=== PATIENT | female | born 1955 | race Caucasian/White ===

== ENCOUNTER → 2016-12-10 07:14 | Outpatient (CLI) | payer OTHER ==
[2014-06-01 12:19] VITALS: BMI 29.1
--- NOTE | ~2016-12-10 | EMG ---
PATIENT:LEOBARDO BAIRD DATE OF SERVICE: 12/10/16 MEDICAL RECORD: [id number] DATE OF : 59 LOCATION: [facility] ADMISSION DATE: REFERRING PHYSICIAN: СЕРГЕЙ DUVALL MD INTERPRETING PHYSICIAN: STEPAN GAN MD DATE OF SERVICE: 12/10/2016 Electromyographic Report REFFERED BY: Dr. Duvall as an outpatient. ELECTROMYOGRAPHIC DATA: Electromyographic examination is limited to both upper extremities. In the right upper extremity, right median motor stimulation elicits a compound motor action potential with a distal latency of 2.9 milliseconds, peak amplitude of 7 millivolts, and calculated conduction velocity of 57 meters per second. Right ulnar motor stimulation elicits a compound motor action potential with a distal latency of 2.5 milliseconds, peak amplitude of 8 millivolts, and calculated conduction velocity of 64 meters per second. Right ulnar motor stimulation across the elbow fails to elicit evidence of conduction block at this level. Antidromic right median sensory stimulation elicits a response with a distal latency of 3.2 milliseconds, amplitude of 15 microvolts and calculated conduction velocity of 56 meters per second. Antidromic right ulnar sensory stimulation elicits a response with a distal latency of 3.1 milliseconds, amplitude of 10 microvolts and calculated conduction velocity of 60 meters per second. The right median F wave has a latency of 26 milliseconds. In the left upper extremity, left median motor stimulation elicits a compound motor action potential with a distal latency of 3.6 milliseconds, peak amplitude of 4 millivolts, and calculated conduction velocity of 57 meters per second. Left ulnar motor stimulation elicits a compound motor action potential with a distal latency of 2.5 milliseconds, peak amplitude of 8 millivolts, and calculated conduction velocity of 67 meters per second. Left ulnar motor stimulation across the elbow fails to elicit evidence of conduction block at this level. Antidromic left median sensory stimulation elicits a response with a distal latency of 3.8 milliseconds, amplitude of 12 microvolts and calculated conduction velocity of 58 meters per second. Antidromic left ulnar sensory stimulation elicits a compound motor action potential with a distal latency of 3.0 milliseconds, amplitude of 13 microvolts and calculated conduction velocity of 49 meters per second. The left median F wave has a latency of 27 milliseconds. Needle electrode examination is limited to both upper extremities as well. Muscles interrogated include the abductor pollicis brevis, first dorsal interosseous, abductor digiti minimi, pronator teres, biceps brachii, triceps and deltoid. There is no abnormality of insertional activity and no abnormal spontaneous activity is seen in all muscles interrogated. Motor unit potential morphology and the pattern of motor unit potential firing and recruitment is normal in all muscles sampled. INTERPRETATION: Electromyographic examination of both upper extremities is normal with the exception of minimal prolongation of the left median sensory distal latency as compared to the contralateral median sensory distal latency ELECTROMYGRAM/NERVE CONDUCTION [id number] LEOBARDO BAIRD and the ulnar sensory distal latencies. This is indicative of median neuropathy, at or distal to the wrist on the left, minimal in degree electrically, consistent with the diagnosis of left carpal tunnel syndrome. There is no electrical evidence of a superimposed cervical radiculopathy or other lesion of the lower motor neuron in the upper extremities at this time. There is no evidence of active denervation. TRANSINT:[id number] Voice Confirmation ID: [id number] DOCUMENT ID: [id number] STEPAN GAN MD CC: [id number] DICTATION DATE: 12/10/16842 PSYCHIATRIC REGISTERED NURSE: 12/11/16 0223 DEP CLI 12/10/16 [facility] [address] [place] [address]
[~2016-12-10 07:14] MED LIST: ADIPEX-P37.5 MG PO; FLEXERIL10 MG PO; LEXAPRO10 MG PO; NEXIUM40 MG PO; NORCO 10/325 TA1 TA1 PO; PERCOCET 10/3251 TA1 PO; PHENERGAN25 M1 PO; PRAVACHOL10 MG PO; PRAVACHOL20 MG PO; ROBAXIN500 MG PO; TOPAMAX50 MG PO; WELLBUTRIN SR150 MG PO; XANAX0.5 MG PO
== END | disposition home or self-care (01) ==
LOC: D.CN 09-01 09:00
DX: R20.0 Anesthesia of skin (principal); R20.2 Paresthesia of skin

== ENCOUNTER 2017-10-26 08:00 | Outpatient (CLI) | payer OTHER ==
[2014-06-01 12:19] VITALS: BMI 29.1
== END 2017-10-26 12:15 | disposition home or self-care (01) ==
LOC: D.MAMMO 08:00
DX: Z12.31 Encounter for screening mammogram for malignant neoplasm of breast (principal)

== ENCOUNTER 2018-11-03 09:35 | Day surgery (SDC) | payer OTHER ==
[2018-11-02 09:31] LABS: BASOPHILS 0.2 % (0-2); EOSINOPHILS 1.3 % (0-7); HEMATOCRIT 44.7 % (36.0-48.0); HEMOGLOBIN 15.6 g/dL (12-16); IMMATURE GRANULOCYTES 0.2 % (0-5); LYMPHOCYTES 29.3 % (15-50); MCHC 34.9 g/dL (31.0-37.0); MCV 88.7 fL (80.0-100.0); PLATELET COUNT 203 10x3/uL (130-400); RBC 5.04 10x6/uL (4.00-5.40); RDW 12.8 % (11.5-14.5); WBC 4.7 10x3/uL (4.8-10.8)
[2018-11-02 09:42] LABS: APTT 26.6 SECONDS (22.8-39.4); INR 1.09 (0.85-1.17); PROTIME 13.6 SECONDS (11.6-15.0)
[~2018-11-03 09:35] MED LIST changes: +ARMOUR THYROID30 MG PO; +LUNESTA1 MG PO; +ZOFRAN4 MG PO
[2018-11-03 09:47] VITALS: BP 139/87; BMI 34.6
--- NOTE | 2018-11-03 13:10 | OP ---
PATIENT NAME: LEOBARDO BAIRD MEDICAL RECORD: [id number] :59 LOCATION:D[facility] ADMISSION DATE: SURGEON: GERMAIN INGRAM MD DATE OF OPERATION: 11/03/2018 SURGEON: Germain Ingram MD ANESTHESIA: General anesthesia by Rey Reaves CRNA. DIAGNOSES: Urge urinary incontinence, exhausted pacemaker battery, nonfunctional pacemaker lead. PROCEDURE: Explantation of InterStim pacemaker and lead (old). New InterStim pacemaker and lead insertion into the right S3 nerve root. FINDINGS: Previous electrode was probably in the right S4 nerve root. Bilateral S3 nerve roots were tested and the right side was more sensitive. SPECIMENS: InterStim pacemaker and lead. BLOOD LOSS: None. CLINICAL HISTORY: This is a 63-year-old female, who had an InterStim device placed for urge urinary incontinence by Dr. Crump of [facility] in the early 1999s. The battery was changed in 2013. The lead had problems as only 3 of the 4 channels were working at the time of the battery change. Now, the battery is and the lead is probably nonfunctional also. We will be removing all of the old hardware and putting in brand new hardware. SHE IS ALLERGIC TO CODEINE. She was given Ancef application support analyst to the OR. DESCRIPTION OF PROCEDURE: The patient was given induction of general anesthesia and placed in prone position. She was then prepped and draped. I infiltrated 0.25% Marcaine with epinephrine around the site of the old pacemaker pocket. The pacemaker is rather superficial under the skin and I can feel the corners of the pacemaker through the skin. The pacemaker pocket was reopened using #15 blade and then using cautery. The pacemaker itself was removed. By tugging on the attached lead, I could see where it inserted into the sacral nerve root. A small incision was made here and the rest of the electrode was removed using a hemostat. The tip of the electrode has tines on it, which would prevent retraction through the subcutaneous skin. We therefore cut the pacemaker electrode just proximal to the tines and then removed the 2 segments of the electrode and thus old unit was entirely removed. Using the Bovie, I cut through the deeper portion of the pacemaker pocket capsule and with blunt dissections, I made a new pocket right at the gluteal fascial level. We then brought in our C-arm. Under fluoroscopy, identified the S3 foramen and the role of sacral foramina. These were marked out using a marking pen. The skin overlying the S2 foramen was then infiltrated with 0.25% Marcaine with epinephrine. Spinal needles were then placed into the S3 foramen on both sides. We electrically tested the S3 foramen on both sides. Both of them gave excellent omari and toe flexion responses at 2 volts. We progressively lowered the voltage by half every time. At 0.25 volts, there was no further response from the left S3 nerve root, but there was still a good response from the right S3 nerve root. The right side being much more sensitive, we decided to proceed with the right side. It should be noted by judging the position of her previous electrode entry that the previous electrode that she had originally OPERATIVE REPORT [id number] LEOBARDO BAIRD was most likely in the S4 nerve root and that may explain some of the lack of efficacy of that electrode. A small incision was made on either side of the spinal needle. The stylet was removed from the spinal needle. An extra-long stylet was placed to hold down the path into the sacral nerve root. The spinal needle was then removed. Over the extra-long stylet, we inserted the trocar dilator. Once the trocar depth was at three-quarters way through the sacral bone, the dilator was removed as well as the extra-long stylet. Through the lumen of the sheath, we inserted the 4-channel electrode. The sheath was then withdrawn to allow all 4 channels to be exposed. We tested each of the 4 channels in turn. Channel 0 did not show any response. However, channels 1 through 3 all showed excellent responses at very low voltages. The sheath was removed as well as the stylet of the electrode. A tunneling device was used to bring the electrode over to the pacemaker pocket. Here, the electrode was attached to the pacemaker using a torque-limiting screwdriver. The pacemaker was then placed into its pocket. We irrigated out the wound with normal saline. Telemetry was performed and we found that all the pacemaker function as well as the lead functions working correctly. There are no open circuits or short circuits in the lead. The wounds were closed with becky. I did use some simple interrupted 4-0 Vicryl to close the posterior wall of the capsule over the pacemaker. Dressings were then applied, and the patient was awakened and brought to the recovery room. I will see her next week to remove the becky and to check on her function. TRANSINT:[id number] Voice Confirmation ID: [id number] DOCUMENT ID: [id number] GERMAIN INGRAM MD at 1310 CC: [id number] DICTATION DATE: 11/03/18 1223 POULTRYMAN: 11/03/18 1254 [id number] [place] [address]
== END 2018-11-03 13:40 | disposition home or self-care (01) ==
LOC: D.OPS 09:35
PROVIDERS: Anesthesiology; ATTEND Urology
DX: N39.41 Urge incontinence (principal); T83.89XA Other specified complication of genitourinary prosthetic devices, implants and grafts, initial encounter; Z01.812 Encounter for preprocedural laboratory examination

== ENCOUNTER → 2018-11-25 08:26 | Outpatient (CLI) | payer OTHER ==
[2018-11-03 09:47] VITALS: BMI 34.6
== END | disposition home or self-care (01) ==
LOC: D.MAMMO 08:00
PROVIDERS: ATTEND Clinical Nurse Specialist Family Health
DX: N63.31 Unspecified lump in axillary tail of the right breast (principal); R59.0 Localized enlarged lymph nodes

== ENCOUNTER → 2018-12-16 18:33 | Outpatient (CLI) | payer OTHER | END | disposition home or self-care (01) | LOC: D.LABREF 18:33 | PROVIDERS: ATTEND Urology | DX: N39.0 Urinary tract infection, site not specified (principal) ==

== ENCOUNTER 2019-02-09 06:20 | Day surgery (SDC) | payer OTHER ==
[2019-02-08 08:29] LABS: HEMATOCRIT 42.8 % (36.0-48.0); HEMOGLOBIN 14.7 g/dL (12-16); MCH 30.1 pg (26.0-34.0); MCHC 34.3 g/dL (31.0-37.0); MCV 87.7 fL (80.0-100.0); MEAN PLATELET VOLUME 9.8 fL (7.4-10.4); RBC 4.88 10x6/uL (4.00-5.40); RDW 13.3 % (11.5-14.5); WBC 7.5 10x3/uL (4.8-10.8)
[~2019-02-09] VITALS: Ht 167.6 cm; Wt 90.7 kg
[2019-02-09] MEDS ORDERED: [UNRECOGNIZED DRUG - OTHER] PO (07:09)
[2019-02-09] MEDS ORDERED: MYRBETRIQ50 MG PO (07:10)
[2019-02-09] MEDS ORDERED: PERCOCET 10-321 EAC1 PO (07:12)
[2019-02-09 07:16] VITALS: BP 151/83; Ht 167.6 cm; Wt 90.7 kg
--- NOTE | 2019-02-09 11:10 | NUR ---
1037-REC'D FROM RR. AWAKE AND ALERT. VSS. DENIES PAIN, NO DISTRESS. ASSISTED UP TO RESTROOM. UNABLE TO URINATE AT THIS TIME. IV PATENT AT KVO.
--- NOTE | 2019-02-09 11:11 | NUR ---
1110-FULL LIQUID TRAY TO ROOM. DENIES COMPLAINTS. NO DISTRESS.
--- NOTE | 2019-02-09 11:41 | NUR ---
1115-ATTEMPTED TO URINATE FOR 2ND TIME WITHOUT SUCCESS. ABD SOFT,NON DISTENDED.VSS. DENIES PAIN.TOLERATED FULL LIQUID TRAY. DAUGHTER AT BEDSIDE,CL IN EASY REACH.
--- NOTE | 2019-02-09 11:58 | OP ---
PATIENT NAME: LEOBARDO BAIRD MEDICAL RECORD: [id number] :59 LOCATION:[facility] ADMISSION DATE: SURGEON: GERMAIN INGRAM MD DATE OF OPERATION: 02/09/2019 SURGEON: Germain Ingram MD ANESTHESIA: General anesthesia by Rey Reaves CRNA. DIAGNOSIS: Female stress urinary incontinence. PROCEDURES: Cystoscopy, pubovaginal sling with [employer] Obtryx mesh graft. FINDINGS: On cystoscopy, cystitis cystica with no bladder tumors. No bladder injury. BLOOD LOSS: Minimal. CLINICAL HISTORY: This is a 63-year-old female, A0, who had a hysterectomy in 1997. Starting from 1998, she has urinary incontinence with activity. Coughing, straining, lifting, laughing, arising from bed will cause her leakage. She recently had the InterStim implant placed for urge urinary incontinence. There is no further urge incontinence, but she still had stress urinary incontinence. On bimanual examination, she has urethral hypermobility with stress incontinence with coughing. Veto test is positive. There is a very minor degree of a cystocele and there is no enterocele and no rectocele. She comes today for a pubovaginal sling. She was warned of the risks of using vaginal mesh, which include infection, graft erosion, graft extrusion, dyspareunia, vaginal pain. She is agreeable to using the mesh graft for the sling. SHE IS ALLERGIC TO CODEINE, WHICH MAKES HER NAUSEOUS. She was given Ancef guest relations coordinator to the OR. DESCRIPTION OF PROCEDURE: The patient was given induction of general anesthesia in supine position. She was then placed into lithotomy position and prepped and draped. A weighted speculum was placed to hold down the posterior vaginal wall. A Phipps catheter was inserted into the bladder and put to bag drainage. A #2 nylon stay sutures were used to hold the labia majora laterally. They were placed through the labia majora and anchored to the medial thighs. The anterior vaginal wall was then infiltrated with Pitressin solution. Twenty units of vasopressin was dissolved in 100 mL of injectable normal saline. This was injected into the periurethral area for hydrodissection. A 1 cm vertical midline incision was then made over the urethra. This was in the anterior vaginal wall. Dissection was then performed using Metzenbaum scissors to dissect the plane between the urethra and the vaginal wall. We extended laterally to the obturator membrane and penetrated the pubocervical ligaments there on either side. The insertion points for the helical trocars of the transobturator graft were then marked out with a marking pen on the groin. This is inferior to the insertion of the adductor longus muscle on to the descending pubic ramus. A stab incision was made here on either side with a #15 blade. The helical trocars were then inserted through the stab sites. They went deep to the descending pubic ramus and came out through the anterior apex of the obturator membrane. Here the needle tip went through the vaginal dissection space and out through the vaginal incision. The tips of the Obtryx II graft were then attached to the needle tips of the trocars and the trocars were OPERATIVE REPORT [id number] LEOBARDO BAIRD withdrawn, resulting in transobturator passage of the graft. The tab on the midpoint of the graft was placed under the mid urethra. At this point, the tab was then removed by cutting the stitch. The Phipps catheter was removed and we performed cystoscopy using a 17-Vincentian cystoscope. She has cystitis cystica, which may indicate recent urinary tract infection. No bladder injury was seen. No urethral injury was seen. The bladder was filled to capacity using the cystoscope. Thereafter, we could apply manual pressure suprapubically and elicit leakage of urine per the urethra. The graft tension was gradually increased until suprapubic pressure, no longer caused any leakage. We did put the legs into the low lithotomy position for this to prevent over tightening of the sling. At this point, the clear plastic sheath material on either side of the graft was removed by cutting the stitch holding it in place. The sheath material on each side was removed entirely. The graft was then cut at the skin level. The groin incisions were closed using simple interrupted 4-0 Vicryl sutures. The vaginal incision was closed using a running 4-0 Monocryl. The bladder was emptied using a Phipps catheter. The Phipps catheter was then removed at the end of the case. The stay sutures were removed by cutting them. Vaginal packing consisting of Kerlix infiltrated with estrogen cream was placed into the vagina. This will be removed prior to the patient going home. TRANSINT:[id number] Voice Confirmation ID: [id number] DOCUMENT ID: [id number] GERMAIN INGRAM MD at 1158 CC: [id number] DICTATION DATE: 02/09/19 1018 BUNDLE HELPER: 02/09/19 115[id number] [place] [id number]
--- NOTE | 2019-02-09 14:03 | NUR ---
1245-DISCHARGE CRITERIA MET.ABLE TO URINATE. VSS. REMOVED IV WITH CATH INTACT, DISPOSED INTO SHAPPS,COVERED SITE WITH BANDAID. REVIEWED POST OPERATIVE INSTRUCTIONS WITH PT WITH DAUGHTER AT BEDSIDE.VERBALIZED UNDERSTANDING WITHOUT QUESTIONS OR CONCERNS. ESCORTED OUT VIA W/C WITH DAUGHTER AWAITING TO DRIVE HOME.
== END 2019-02-09 12:45 | disposition home or self-care (01) ==
LOC: D.OPS 06:20
PROVIDERS: Anesthesiology; ATTEND Urology
DX: N39.3 Stress incontinence (female) (male) (principal)

== ENCOUNTER 2019-05-24 18:11 | Inpatient (IN) | payer OTHER ==
[~2019-05-24] VITALS: Ht 167.6 cm; Wt 89.8 kg
[~2019-05-24 18:11] MED LIST changes: +MYRBETRIQ50 MG PO; +PERCOCET 10-321 EAC1 PO; +[UNRECOGNIZED DRUG - OTHER] PO
[2019-05-24] MEDS ORDERED: SYNTHROID50 MCG PO (18:50)
[2019-05-24 19:17] LABS: BASOPHILS 0.1 % (0-2); EOSINOPHILS 0 % (0-7); HEMATOCRIT 43.9 % (36.0-48.0); HEMOGLOBIN 15.1 g/dL (12-16); IMMATURE GRANULOCYTES 0.3 % (0-5); MCH 31.1 pg (26.0-34.0); MCHC 34.4 g/dL (31.0-37.0); MCV 90.3 fL (80.0-100.0); MEAN PLATELET VOLUME 10.1 fL (7.4-10.4); NEUTROPHILS 88.6 % (40-80); PLATELET COUNT 201 10x3/uL (130-400); RBC 4.86 10x6/uL (4.00-5.40); RDW 13.3 % (11.5-14.5); WBC 18.3 10x3/uL (4.8-10.8)
[2019-05-24 19:33] LABS: CALC OSMOLALITY 273 mosm/kg (275-300); CALCIUM 8.8 mg/dL (8.5-10.1); CARBON DIOXIDE 20.4 mmol/L (21.0-32.0); CHLORIDE - SERUM 102 mmol/L (98-107); CREATININE - SERUM 1.6 mg/dL (0.6-1.3); POTASSIUM - SERUM 3.8 mmol/L (3.5-5.1); SODIUM 135 mmol/L (136-145); UREA NITROGEN 21 mg/dL (7-18); eGFR NON AFRICAN AMERICAN 35 mL/min (90-120)
[2019-05-24 19:34] LABS: APTT 25.4 SECONDS (22.8-39.4); GLUCOSE 125 mg/dL (74-106); INR 1.03 (0.85-1.17); PROTIME 13.4 SECONDS (11.6-15.0)
[2019-05-24 19:47] LABS: ALBUMIN 3.6 g/dL (3.4-5.0); ALKALINE PHOSPHATASE 88 U/L (46-116); ALT (SGPT) 27 U/L (10-68); BILIRUBIN - TOTAL 0.52 mg/dL (0.2-1.3); CKMB 0.2 U/L (0.0-3.6); CREATINE KINASE 56 UL (21-215); PROTEIN - SERUM 7.4 g/dL (6.4-8.2)
[2019-05-24 19:52] LABS: TROPONIN-I < 0.017 ng/mL (0.000-0.060)
--- NOTE | 2019-05-24 21:02 | NUR ---
URINE SENT TO LAB
[2019-05-24 21:23] LABS: APPEARANCE CLEAR (CLEAR); BILIRUBIN NEGATIVE (NEGATIVE); COLOR YELLOW (YELLOW); GLUCOSE NEGATIVE (NEGATIVE); KETONE NEGATIVE (NEGATIVE); NITRITE NEGATIVE (NEGATIVE); PROTEIN NEGATIVE (NEGATIVE); UROBILINOGEN NORMAL (NORMAL)
--- NOTE | 2019-05-24 21:36 | NUR ---
PT FAMILY MEMBER REQUESTING TO SPEAK WITH JASON TORRES IN [facility] NOTIFIED. EDP NOTIFIED ALEXANDRA WILKES.
[2019-05-25] VITALS (7 sets, daily range): BP systolic 105–140; BP diastolic 63–77; Ht 167.6 cm; Wt 89.8 kg
--- NOTE | 2019-05-25 00:30 | NUR ---
REC'D PATIENT FROM ER WITH GUEST AT BEDSIDE. BED IN LOWEST POSITION AND CALL LIGHT WITHIN REACH. ADMISSION COMPLETED. PATIENT REQUESTED PAIN MEDS WHEN DUE. PATIENT DENIES OTHER NEEDS AT THIS TIME. BED IN LOWEST POSITION AND CALL LIGHT WITHIN REACH. ENCOURAGED THE PATIENT TO CALL IF SHE HAS NEEDS. WILL CONTINUE TO MONITOR.
[2019-05-25] MEDS ORDERED: MIRAPEX0.75 MG PO (00:41)
[2019-05-25 06:56] LABS: BASOPHILS 0.2 % (0-2); EOSINOPHILS 0 % (0-7); HEMATOCRIT 43.4 % (36.0-48.0); HEMOGLOBIN 14.5 g/dL (12-16); IMMATURE GRANULOCYTES 0.3 % (0-5); LYMPHOCYTES 9.6 % (15-50); MCH 30.7 pg (26.0-34.0); MCHC 33.4 g/dL (31.0-37.0); MCV 91.9 fL (80.0-100.0); MEAN PLATELET VOLUME 10.3 fL (7.4-10.4); MONOCYTES 3.3 % (2-11); NEUTROPHILS 86.6 % (40-80); PLATELET COUNT 178 10x3/uL (130-400); RBC 4.72 10x6/uL (4.00-5.40); RDW 13.7 % (11.5-14.5); WBC 17.1 10x3/uL (4.8-10.8)
[2019-05-25 07:05] LABS: ANION GAP 14.2 mmol/L (8-16); CALCIUM 8.2 mg/dL (8.5-10.1); CARBON DIOXIDE 23.6 mmol/L (21.0-32.0); CREATININE - SERUM 1.5 mg/dL (0.6-1.3); MAGNESIUM - SERUM 1.5 mg/dL (1.8-2.4); PHOSPHOROUS 3.5 mg/dL (2.5-4.9); POTASSIUM - SERUM 3.8 mmol/L (3.5-5.1); THYROID STIMULATING HORMONE 1.7 uIU/mL (0.36-3.74)
--- NOTE | 2019-05-25 07:50 | NUR ---
ASSESSMENT COMPLETE, DAUGHTER @ BS. PT C/O RIGHT SHOULDER PAIN. STATES SHE TAKES OXYCODONE FOR PAIN AT HOME HOWEVER HERE [facility] ORDERED. WILL ADDRESS WITH .
--- NOTE | 2019-05-25 10:30 | NUR ---
SON AT BEDSIDE, DENIES ANY NEEDS AT THIS TIME
--- NOTE | 2019-05-25 12:51 | MORECARE ---
CASE MANAGEMENT DISCHARGE SUMMARY PATIENT: LEOBARDO BAIRD UNIT: [id number] ADM DATE: 05/24/19 AGE: 63 : 59 SEX: F ROOM/BED: D.1203 AUTHOR: AI MÉNDEZ PHYSICIAN: REFERRING PHYSICIAN: JOSEPH SOTOMAYOR MD DATE OF SERVICE: 05/25/19 Discharge Plan Patient Name: LEOBARDO BAIRD Facility: [facility]:[place] : 1955 Planned Disposition: Home Anticipated Discharge Date: 05/29/19 Discharge Date: Expected LOS: 5 Initial Reviewer: [email or web address] Initial Review Date: 05/25/2019 Generated: 05/25/19 1:51 pm DCPIA - Discharge Planning Initial Assessment Updated by [email or web address]: Brianna Sorensen on 05/25/19 12:50 pm * Is the patient Alert and Oriented? Yes * PCP Dr. Duvall * Pharmacy [facility] * Preadmission Environment Home with Family * ADLs Independent * Equipment None * List name and contact numbers for known caregivers / representatives who currently or will assist patient after discharge: Liyah Chiu - [facility] - [phone] * Verbal permission to speak to the caregivers and representatives has been obtained from the patient. Yes * Community resources currently utilized None * Additional services required to return to the preadmission environment? No * Can the patient safely return to the preadmission environment? Yes * Has this patient been hospitalized within the prior 30 days at any hospital? No Patient Name: LEOBARDO BAIRD Page [phone] at 1251 All edits/amendments must be made on the electronic document DICTATION DATE: 05/25/19 1251 HEAD GOLF COACH: GEOVANNA 05/25/19 1251 RPT#: [id number] DC DATE: STATUS: ADM IN [facility] [address] [place] [address] END OF REPORT
--- NOTE | 2019-05-25 12:54 | NUR ---
NOTIFIED RESPIRATORY THERAPIST THAT PT WAS HAVING TROUBLE BREATHING AND NEEDED ASSISTANCE. WAS INSTRUCTED TO ORDER ABG AND CHEST XRAY. ORDER PLACED PER RT REQUEST. WILL CTM.
--- NOTE | 2019-05-25 13:01 | MORECARE ---
CASE MANAGEMENT DISCHARGE SUMMARY PATIENT: LEOBARDO BAIRD UNIT: [id number] ADM DATE: 05/24/19 AGE: 63 : 59 SEX: F ROOM/BED: D.1203 AUTHOR: DEVDOC PHYSICIAN: REFERRING PHYSICIAN: JOSEPH SOTOMAYOR MD DATE OF SERVICE: 05/25/19 Discharge Plan Patient Name: LEOBARDO BAIRD Facility: [facility]:[place] : 1955 Planned Disposition: Home Anticipated Discharge Date: 05/29/19 Discharge Date: Expected LOS: 5 Initial Reviewer: [email or web address] Initial Review Date: 05/25/2019 Generated: 05/25/19 2:00 pm DCP- Discharge Planning Updated by [email or web address]: Brianna Sorensen on 05/25/19 11:[address] DC PLAN:Return home independently. ANTICIPATED DC NEEDS: denied known dc needs at time of assessment. CM met with patient to complete initial dc planning assessment. CM educated patient on the CM role and verbal consent given by patient to complete assessment. CM verified patient's address, phone number, and emergency contact phone numbers. Patient lives at home independently. 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 At discharge patient plans to return home independently and feels this is a safe discharge. CM discussed availability of home health, rehab services, and medical equipment. Patient denied known discharge needs at this time. Transportation provider at discharge will be one of her daughters. CM will continue to follow and will assist as needed with dc plans/needs. Brianna Sorensen RN, [facility] DCPIA - Discharge Planning Initial Assessment Updated by [email or web address]: Brianna Sorensen on 05/25/19 12:50 pm * Is the patient Alert and Oriented? Yes * PCP Dr. Duvall * Pharmacy [facility] * Preadmission Environment Home with Family * ADLs Independent * Equipment None * List name and contact numbers for known caregivers / representatives who currently or will assist patient after discharge: Liyah Chiu - daughter - [phone] * Verbal permission to speak to the caregivers and representatives has been obtained from the patient. Yes * Community resources currently utilized None * Additional services required to return to the preadmission environment? No * Can the patient safely return to the preadmission environment? Yes * Has this patient been hospitalized within the prior 30 days at any hospital? No Last DP export: 05/25/19 11:51 am Patient Name: LEOBARDO BAIRD Page 47875 at 1301 All edits/amendments must be made on the electronic document DICTATION DATE: 05/25/19 1300 INTERNAL MEDICINE SPECIALIST: GEOVANNA 05/25/19 1300 RPT#: [id number] DC DATE: STATUS: ADM IN [facility] [address] [place] [address] END OF REPORT
--- NOTE | 2019-05-25 14:30 | NUR ---
IV RESTARTED X 2 STICKS WITH 22 GAUGE TO L HAND. I/2 NS INFUSING @ 75CC/HR. REHAB STAFF IN ROOM TALKING TO PT ABOUT INPATIENT REHAB.
--- NOTE | 2019-05-25 16:29 | NUR ---
15OO DR. KIM ON FLOOR ROUNDING ON PT. NEW ORDERS RECEIVED. 1545 TEMP 100.1 TYLENOL GIVEN 1615 RETURNED FROM CTA, FAMILY AT BEDSIDE.
--- NOTE | 2019-05-25 16:37 | NUR ---
PT ASSISTED TO RESTROOM.
--- NOTE | 2019-05-26 00:51 | NUR ---
PT LYING IN BED RESTING WITH EYES CLOSED. EASILY AWAKEN WITH VERBAL STIMULI. NO SIGNS OR SYMPTOMS OF DISTRESS NOTED. RESPIRATIONS EVEN AND UNLABORED. 3L NC DAUGHTER IS AT BEDSIDE. PRN PAIN MEDICATION GIVEN FOR 6/10 PAIN LEVEL. DURING REASSESSMENT PAIN LEVEL IS NOW A 0/10. CONTINENT OF BOWELL AND BLADDER. BOWELL SOUND ACTIVE x4. PT STATES THAT LAST BOWELL MOVEMENT WAS 05/24/2019. ABDOMEN IS SOFT TO PALPATION. IV IS IN LEFT AC. UP AD MOMO. PT STATES THAT SHE IS SWEATING. HEAT TURNED OFF AND COVERS PULLED BACK. SHOWERED OFFERED AND PT REFUSED, STATING THAT SHE WILL TAKE A SHOWER IN THE AM. GOWN CHANGED. CALL LIGHT IS WITH IN REACH AND BED IS IN LOWEST POSITION. WILL CONTINUE TO MONITOR
[2019-05-26 01:08] VITALS: BP 96/57
[2019-05-26 06:05] VITALS: BP 111/63
--- NOTE | 2019-05-26 06:44 | NUR ---
PT LYING IN BED WITH EYES CLOSED. NOT EASY AWAKEN TO STIMULATION. PT IS LETHARGIC SKIN IS SWEATY AND FEELS CLAMMY, HANDS ARE SWOLLEN BILATERLLY. PT ALSO PRESENTS WITH A NON PRODUCTIVE WET COUGH. BLOOD SUGAR CHECKED 162. RESPIRATORY NOTIFIED UP DRAFT GIVEN. DAUGHTER IS AT BEDSIDE. DAUGHTER ATEMPTED TO TAKE RING OFF BECAUSE OF PT SWOLLEN HANDS BUT WAS UNSUCCESSFUL. PT READJUSTED AND BED WAS ELEVATED TO 90 DEGREE ANGLE. WILL CONTINUE TO MONITOR.
--- NOTE | 2019-05-26 06:49 | NUR ---
I have reviewed this patient and I concur with the Shift Assessment completed by the Licensed Practical Nurse today this shift.
[2019-05-26 07:13] LABS: HEMATOCRIT 44.3 % (36.0-48.0); HEMOGLOBIN 14.6 g/dL (12-16); MCH 30.5 pg (26.0-34.0); MCV 92.5 fL (80.0-100.0); MEAN PLATELET VOLUME 10.7 fL (7.4-10.4); PLATELET COUNT 188 10x3/uL (130-400); RBC 4.79 10x6/uL (4.00-5.40); RDW 13.7 % (11.5-14.5); WBC 26.4 10x3/uL (4.8-10.8)
[2019-05-26 07:29] LABS: ANION GAP 12.3 mmol/L (8-16); CALCIUM 8.5 mg/dL (8.5-10.1); CARBON DIOXIDE 23.8 mmol/L (21.0-32.0); CREATININE - SERUM 1.5 mg/dL (0.6-1.3); PHOSPHOROUS 3.8 mg/dL (2.5-4.9)
[2019-05-26 07:35] LABS: MAGNESIUM - SERUM 2.1 mg/dL (1.8-2.4); POTASSIUM - SERUM 5.1 mmol/L (3.5-5.1)
[2019-05-26 07:39] LABS: LYMPHOCYTES 3 % (15-50); NEUTROPHILS 74 % (40-80); PLATELET ESTIMATE NORMAL
--- NOTE | 2019-05-26 08:00 | NUR ---
PT RESTING IN BED WITH EYES OPEN CALL LIGHT IN REACH FAMILY AT BEDSIDE PT ALERT AND ORIETNTED AND ABLE TO ANSWER QUESTIONS IT WAS REPORTED THAT LAST NIGHT SHE HAD A CHANGE IN LOC WILL RAFA
--- NOTE | 2019-05-26 08:15 | NUR ---
HOSPITAL STAFF HERE TO TAKE PT TO CT
--- NOTE | 2019-05-26 08:15 | NUR ---
PT TAKEN FOR CT
--- NOTE | 2019-05-26 08:30 | NUR ---
PT RETURNED FROM CT
[2019-05-26 09:04] VITALS: BP 119/74
--- NOTE | 2019-05-26 09:30 | NUR ---
DR POWELL IS WANTING PT TRANSFERED TO HOSPITAL WITH A NEURO DR AND PT NEEDS SPECIAL EQUIPMENT FOR MRI MACHINE DUE TO BLADDER STIMULATOR WILL MONITER
[2019-05-26 09:32] VITALS: BP 109/50
--- NOTE | 2019-05-26 10:10 | NUR ---
FLOOR CALLED ABOUT PT HAVING A BLADDER STIMULATOR AND WANTED TO KNOW IF IT WAS MRI COMPATIBLE. SHE CALLED ME BACK WITH THE INFORMATION, FAXED A COPY OF THE CARD AND I CALLED [employer] TO CHECK WHAT THE CONDITIONS WERE. MRI OF BRAIN ONLY WITH A TRANSMIT AND RECEIVE COIL. OUR COIL ISN'T A TRANSMIT AND RECEIVE COIL SO WE ARE UNABLE TO DO THE STUDY HERE. I INFORMED THE NURSE OF THIS AND THE EXAM WAS CANCELLED.
--- NOTE | 2019-05-26 10:30 | NUR ---
TRANSFER TEAM IS WORKING ON FINDING A BED THAT MEETS PTS NEED
[2019-05-26] MEDS ORDERED: LOVENOX40 MG/0.4 SC (11:00)
[2019-05-26] MEDS ORDERED: ZITHROMAX 500M500 MG IV (11:00)
[2019-05-26] MEDS ORDERED: IPRAT-ALBUT 0.5-3 ML UPD (11:00)
[2019-05-26] MEDS ORDERED: ROCEPHIN 1 GM/D51 G1 IV (11:00)
[2019-05-26] MEDS ORDERED: VANCOMYCIN 1 GM/1 G1 IV (11:00)
[2019-05-26] MEDS ORDERED: ALBUTEROL2.5 MG/3 M UPD (11:00)
[2019-05-26] MEDS ORDERED: MUCINEX600 MG PO (11:01)
[2019-05-26] MEDS ORDERED: TESSALON PERLE100 MG PO (11:01)
[2019-05-26] MEDS ORDERED: SOLU-MEDRO40 MG/1 M1 IV (11:02)
--- NOTE | 2019-05-26 12:18 | NUR ---
HOUSING SUPERVISION NOTIFIED THAT PT NEEDED TELEMETRY.
[2019-05-26 12:20] VITALS: BP 112/58
[2019-05-26 12:44] LABS: CHOL - HDL RATIO 5.7 ratio (2.3-4.1); LDL-HDL RATIO 3.5 ratio (1.5-3.5)
[2019-05-26 13:35] LABS: CKMB 7.4 U/L (0.0-3.6); CREATINE KINASE 168 UL (21-215); TROPONIN-I < 0.017 ng/mL (0.000-0.060)
--- NOTE | 2019-05-26 13:40 | NUR ---
PT IS ON WAITING LIST FOR [facility] AND [facility] TRANSFER TEAM STILL LOOKING FOR PLACEMENT FOR PT
[2019-05-26 16:00] VITALS: BP 134/86
--- NOTE | 2019-05-26 16:03 | MORECARE ---
CASE MANAGEMENT DISCHARGE SUMMARY PATIENT: LEOBARDO BAIRD UNIT: [id number] ADM DATE: 05/24/19 AGE: 63 : 59 SEX: F ROOM/BED: D.1203 AUTHOR: DEVDOC PHYSICIAN: REFERRING PHYSICIAN: JOSEPH SOTOMAYOR MD DATE OF SERVICE: 05/26/19 Discharge Plan Patient Name: LEOBARDO BARID Facility: [facility]:[place] : 1955 Planned Disposition: Home Anticipated Discharge Date: 05/29/19 Discharge Date: Expected LOS: 5 Initial Reviewer: [email or web address] Initial Review Date: 05/25/2019 Generated: 05/26/19 5:03 pm DCP- Discharge Planning Updated by [email or web address]: Brianna Sorensen on 05/25/19 11:[address] DC PLAN:Return home independently. ANTICIPATED DC NEEDS: denied known dc needs at time of assessment. CM met with patient to complete initial dc planning assessment. CM educated patient on the CM role and verbal consent given by patient to complete assessment. CM verified patient's address, phone number, and emergency contact phone numbers. Patient lives at home independently. 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 At discharge patient plans to return home independently and feels this is a safe discharge. CM discussed availability of home health, rehab services, and medical equipment. Patient denied known discharge needs at this time. Transportation provider at discharge will be one of her daughters. CM will continue to follow and will assist as needed with dc plans/needs. Brianna Sorensen RN, [facility] DCPIA - Discharge Planning Initial Assessment Updated by [id number]: Brianna Sorensen on 05/25/19 12:50 pm * Is the patient Alert and Oriented? Yes * PCP Dr. Duvall * Pharmacy [facility] * Preadmission Environment Home with Family * ADLs Independent * Equipment None * List name and contact numbers for known caregivers / representatives who currently or will assist patient after discharge: Liyah Chiu - daughter - [phone] * Verbal permission to speak to the caregivers and representatives has been obtained from the patient. Yes * Community resources currently utilized None * Additional services required to return to the preadmission environment? No * Can the patient safely return to the preadmission environment? Yes * Has this patient been hospitalized within the prior 30 days at any hospital? No Last DP export: 05/25/19 12:01 pm Patient Name: LEOBARDO BAIRD Page 48746 at 1603 All edits/amendments must be made on the electronic document DICTATION DATE: 05/26/191602 EFFICIENCY MANAGER: GEOVANNA 05/26/191602 RPT#: [id number] DC DATE: STATUS: ADM IN [facility] [address] [place] [address] END OF REPORT
--- NOTE | 2019-05-26 16:05 | NUR ---
I have reviewed this patient and I concur with the Shift Assessment completed by the Licensed Practical Nurse today this shift.
--- NOTE | 2019-05-26 16:28 | NUR ---
PT DISCHARGED VIA AMBULANCE TO [facility] REPORT CALLED. PT TOLERATED WELL
--- NOTE | 2019-05-26 16:37 | MORECARE ---
CASE MANAGEMENT DISCHARGE SUMMARY PATIENT: LEOBARDO BAIRD UNIT: [id number] ADM DATE: 05/24/19 AGE: 63 : 59 SEX: F ROOM/BED: D.1203 AUTHOR: DEV,DOC PHYSICIAN: REFERRING PHYSICIAN: JOSEPH SOTOMAYOR MD DATE OF SERVICE: 05/26/19 Discharge Plan Patient Name: LEOBARDO BAIRD Facility: [facility]:[place] : 1955 Planned Disposition: Home Anticipated Discharge Date: 05/29/19 Discharge Date: 05/26/2019 Expected LOS: 5 Initial Reviewer: [email or web address] Initial Review Date: 05/25/2019 Generated: 05/26/19 5:36 pm Comments DCP- Discharge Planning Updated by [email or web address]: Maria Fernanda Vicente on 05/26/19 3:[address] 0944 RECEIVED MESSAGE FROM BRANDY, MUSIC COPYIST, THAT THE LYNDA BEAN, HAD CALLED HER REGARDING TRANSFER TO ANOTHER HOSPITAL.. CARLYN ALSO RECEIVED A MESSAGE REGARDING ANTHONY GUZMAN. DR KIM TO THE UNIT. SHE STATES THE PATIENT IS OUTSIDE OF THE 3 HR WINDOW OF OPPOTUNITY. SHE REQUEST A TRANSFER TO [facility] [place] FOR NEUROLOGY SERVICES. THE PATIENT ALSO NEEDS A MRI WITH 1.5 BRIDGET TURN OFF TRANSMIT AND RECEIVE HEAD COIL SHE HAS A BLADDER STIMULATOR. TC TO EASY ADMIT. CARLYN SPOKE WITH KEVIN AT [phone]. FAXED FACE SHEET. PROVIDED DR KIM'S CONTACT PHONE NUMBER. TC TO THE NURSING STEREOTYPER HELPER, SHREE, PER PROTOCOL. CARLYN OBTAINED PAPERWORK FOR PRIMARY NURSE, JONAH, TO OBTAIN THE MD SIGNATURE AND START COBRA FORM W/ TRANSFER FORM AND PCS SHEET. 1140 CARLYN NOTIFIED THAT THE PATIENT HAD BEEN ACCEPTED TO [facility] [place] BUT WAS PLACED ON A WAITING LIST. THEY SUGGESTED WE CONTINUE SEARCH. CARLYN SPOKE W/ GENEVA. SHE CONFERRED W/ DR KIM. SEARCH EXPANDED. X/R STUDIES REQUESTED ON DISC FROM RADIOLOGY. SPOKE W/ CHUN. CHART COPY PROVIDED TO THE STAFF THEY COULD NOT OBTAIN. PRIMARY NURSE, LYNDA AND PHYSICAN ARE COMMUNICATING WITH THE PATIENT. SHE IS IN AGREEMENT WITH THE PLAN. NURSING STEREOTYPER HELPER CAME TO THE UNIT WITH TRANSFER BACK AGREEMENT FOR [facility]. FAXED CLINICAL REQUSTED TO [facility] ADMIT ALONG WITH THE TRANSFR BACK AGREEMENT FOR [facility]. PRIMARY NURSE AND STEREOTYPER HELPER WORKING W/ ACCEPTING HOSPITAL. PATIENT HAS BEEN ACCEPTED BY DR GARCIA , [facility]. SHE WILL BE TRANSFERED BY [facility]. DCP- Discharge Planning Updated by [email or web address]: Brianna Sorensen on 05/25/19 11:[address] DC PLAN:Return home independently. ANTICIPATED DC NEEDS: denied known dc needs at time of assessment. CM met with patient to complete initial dc planning assessment. CM educated patient on the CM role and verbal consent given by patient to complete assessment. CM verified patient's address, phone number, and emergency contact phone numbers. Patient lives at home independently. 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 At discharge patient plans to return home independently and feels this is a safe discharge. CM discussed availability of home health, rehab services, and medical equipment. Patient denied known discharge needs at this time. Transportation provider at discharge will be one of her daughters. CM will continue to follow and will assist as needed with dc plans/needs. Brianna Sorensen RN, [facility] DCPIA - Discharge Planning Initial Assessment Updated by [email or web address]: Brianna Sorensen on 05/25/19 12:50 pm * Is the patient Alert and Oriented? Yes * PCP Dr. Duvall * Pharmacy [facility] * Preadmission Environment Home with Family * ADLs Independent * Equipment None * List name and contact numbers for known caregivers / representatives who currently or will assist patient after discharge: Liyah Chiu - daughter - [phone] * Verbal permission to speak to the caregivers and representatives has been obtained from the patient. Yes * Community resources currently utilized None * Additional services required to return to the preadmission environment? No * Can the patient safely return to the preadmission environment? Yes * Has this patient been hospitalized within the prior 30 days at any hospital? No Last DP export: 05/26/19 3:03 p Patient Name: LEOBARDO BAIRD Page 36337 at 1637 All edits/amendments must be made on the electronic document DICTATION DATE: 05/26/19 1636 MMA FIGHTER: GEOVANNA 05/26/19 1636 RPT#: [id number] DC DATE:05/26/19 STATUS: DIS IN [facility] [address] [place] [address] END OF REPORT
--- NOTE | 2019-05-27 11:56 | MORECARE ---
CASE MANAGEMENT DISCHARGE SUMMARY PATIENT: LEOBARDO BAIRD UNIT: [id number] ADM DATE: 05/24/19 AGE: 63 : 59 SEX: F ROOM/BED: D.1203 AUTHOR: DEV,DOC PHYSICIAN: REFERRING PHYSICIAN: JOSEPH SOTOMAYOR MD DATE OF SERVICE: 05/27/19 Discharge Plan Patient Name: LEOBARDO BAIRD Facility: [facility]:[place] : 1955 Planned Disposition: Home Anticipated Discharge Date: 05/29/19 Discharge Date: 05/26/2019 Expected LOS: 5 Initial Reviewer: [email or web address] Initial Review Date: 05/25/2019 Generated: 05/27/19 12:55 pm Comments DCP- Discharge Planning Updated by [id number]: Maria Fernanda Vicente on 05/26/19 3:[address] 0944 RECEIVED MESSAGE FROM BRANDY, SATELLITE TV TECHNICIAN, THAT THE LYNDA BEAN, HAD CALLED HER REGARDING TRANSFER TO ANOTHER HOSPITAL.. CARLYN ALSO RECEIVED A MESSAGE REGARDING ANTHONY GUZMAN. DR KIM TO THE UNIT. SHE STATES THE PATIENT IS OUTSIDE OF THE 3 HR WINDOW OF OPPOTUNITY. SHE REQUEST A TRANSFER TO [facility] FOR NEUROLOGY SERVICES. THE PATIENT ALSO NEEDS A MRI WITH 1.5 BRIDGET TURN OFF TRANSMIT AND RECEIVE HEAD COIL SHE HAS A BLADDER STIMULATOR. TC TO EASY ADMIT. CARLYN SPOKE WITH KEVIN AT [phone]. FAXED FACE SHEET. PROVIDED DR KIM'S CONTACT PHONE NUMBER. TC TO THE NURSING FIRST AID NURSE, SHREE, PER PROTOCOL. CARLYN OBTAINED PAPERWORK FOR PRIMARY NURSE, JONAH, TO OBTAIN THE MD SIGNATURE AND START COBRA FORM W/ TRANSFER FORM AND PCS SHEET. 1140 CARLYN NOTIFIED THAT THE PATIENT HAD BEEN ACCEPTED TO [facility] BUT WAS PLACED ON A WAITING LIST. THEY SUGGESTED WE CONTINUE SEARCH. CARLYN SPOKE W/ GENEVA. SHE CONFERRED W/ DR KIM. SEARCH EXPANDED. X/R STUDIES REQUESTED ON DISC FROM RADIOLOGY. SPOKE W/ CHUN. CHART COPY PROVIDED TO THE STAFF THEY COULD NOT OBTAIN. PRIMARY NURSE, LYNDA AND PHYSICAN ARE COMMUNICATING WITH THE PATIENT. SHE IS IN AGREEMENT WITH THE PLAN. NURSING FIRST AID NURSE CAME TO THE UNIT WITH TRANSFER BACK AGREEMENT FOR [facility]. FAXED CLINICAL REQUSTED TO [facility] ADMIT ALONG WITH THE TRANSFR BACK AGREEMENT FOR [facility]. PRIMARY NURSE AND FIRST AID NURSE WORKING W/ ACCEPTING HOSPITAL. PATIENT HAS BEEN ACCEPTED BY DR GARCIA , [facility]. SHE WILL BE TRANSFERED BY [facility]. DCP- Discharge Planning Updated by [id number]: Brianna Sorensen on 05/25/19 11:[address] DC PLAN:Return home independently. ANTICIPATED DC NEEDS: denied known dc needs at time of assessment. CM met with patient to complete initial dc planning assessment. CM educated patient on the CM role and verbal consent given by patient to complete assessment. CM verified patient's address, phone number, and emergency contact phone numbers. Patient lives at home independently. 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 At discharge patient plans to return home independently and feels this is a safe discharge. CM discussed availability of home health, rehab services, and medical equipment. Patient denied known discharge needs at this time. Transportation provider at discharge will be one of her daughters. CM will continue to follow and will assist as needed with dc plans/needs. Brianna Sorensen RN, [facility] DCPIA - Discharge Planning Initial Assessment Updated by [email or web address]: Brianna Sorensen on 05/25/19 12:50 pm * Is the patient Alert and Oriented? Yes * PCP Dr. Duvall * Pharmacy [facility] * Preadmission Environment Home with Family * ADLs Independent * Equipment None * List name and contact numbers for known caregivers / representatives who currently or will assist patient after discharge: Liyah Chiu - daughter - [phone] * Verbal permission to speak to the caregivers and representatives has been obtained from the patient. Yes * Community resources currently utilized None * Additional services required to return to the preadmission environment? No * Can the patient safely return to the preadmission environment? Yes * Has this patient been hospitalized within the prior 30 days at any hospital? No Last DP export: 05/26/19 3:37 p Patient Name: LEOBARDO BAIRD Page [id number] at 1156 All edits/amendments must be made on the electronic document DICTATION DATE: 05/27/19 1155 GRAPHIC USER INTERFACE DESIGNER: GEOVANNA 05/27/19 1155 RPT#: [id number] DC DATE:05/26/19 STATUS: DIS IN [facility] [address] [place] [address] END OF REPORT
[2019-05-27 14:08] LABS: INFLUENZA A PCR Negative (Negative); INFLUENZA B PCR Negative (Negative)
== END 2019-05-26 16:33 | DRG 871 ==
LOC: D.ER 18:11 → D.M3 21:54
PROVIDERS: Family Medicine; ADMIT Family Medicine; ATTEND Family Medicine
DX: A41.9 Sepsis, unspecified organism (principal); I63.81 Other cerebral infarction due to occlusion or stenosis of small artery; J18.9 Pneumonia, unspecified organism; J96.91 Respiratory failure, unspecified with hypoxia; N17.9 Acute kidney failure, unspecified; F17.213 Nicotine dependence, cigarettes, with withdrawal; E87.1 Hypo-osmolality and hyponatremia; G93.40 Encephalopathy, unspecified; N18.9 Chronic kidney disease, unspecified; E03.9 Hypothyroidism, unspecified; F41.8 Other specified anxiety disorders; E66.9 Obesity, unspecified; Z68.32 Body mass index [BMI] 32.0-32.9, adult

== ENCOUNTER 2019-07-13 08:30 | Day surgery (SDC) | payer OTHER ==
[2019-07-11 08:55] LABS: HEMATOCRIT 41.1 % (36.0-48.0); HEMOGLOBIN 13.3 g/dL (12-16); MCH 30.3 pg (26.0-34.0); MCHC 32.4 g/dL (31.0-37.0); MCV 93.6 fL (80.0-100.0); MEAN PLATELET VOLUME 9.8 fL (7.4-10.4); RBC 4.39 10x6/uL (4.00-5.40); RDW 12.9 % (11.5-14.5); WBC 7.6 10x3/uL (4.8-10.8)
[~2019-07-13] VITALS: Ht 167.6 cm; Wt 90.7 kg
[~2019-07-13 08:30] MED LIST changes: +ALBUTEROL2.5 MG/3 M UPD; +BAYER CHEWABLE81 MG PO; +BYSTOLIC5 MG; +ELIQUIS2.5 MG PO; +IPRAT-ALBUT 0.5-3 ML UPD; +LIPITOR80 MG PO; +LOVENOX40 MG/0.4 SC; +MIRAPEX0.75 MG PO; +MUCINEX600 MG PO; +ROCEPHIN 1 GM/D51 G1 IV; +SOLU-MEDRO40 MG/1 M1 IV; +SYNTHROID50 MCG PO; +TESSALON PERLE100 MG PO; +VANCOMYCIN 1 GM/1 G1 IV; +ZITHROMAX 500M500 MG IV; +ZOFRAN4 MG
[2019-07-13 09:07] VITALS: BP 116/68; Ht 167.6 cm; Wt 90.7 kg
[2019-07-13] MEDS ORDERED: HYDROCODON-ACE1 EA10 PO (11:09)
--- NOTE | 2019-07-17 08:42 | OP ---
PATIENT NAME: LEOBARDO BAIRD MEDICAL RECORD: [id number] :[birth year] [facility] DATE: SURGEON: LA ZARAGOZA MD DATE OF OPERATION: 07/13/2019 PREOPERATIVE DIAGNOSIS: Rotator cuff tear of the right shoulder with impingement syndrome. POSTOPERATIVE DIAGNOSES: 1. Rotator cuff tear of the right shoulder with impingement syndrome 2. Severe biceps tendinitis. PROCEDURES: 1. Shoulder arthroscopy with arthroscopic subacromial decompression, acromioplasty, and bursectomy. 2. Arthroscopic biceps tenotomy. 3. Open rotator cuff repair. SURGEON: La Zaragoza MD HAND CIGAR MAKER: ROB Juárez INTRAOPERATIVE COMPLICATIONS: None. SUMMARY OF PATHOLOGIC FINDINGS: She had a very large rotator cuff tear with a split back to the glenoid. The apex was reapproximatable and the rotator cuff was amenable to primary repair with double row. Previously placed sutures and anchors were removed. OPERATIVE SUMMARY IN DETAIL: After obtaining the appropriate preoperative orthopedic surgery consent as well as a complete preparation to the operating room and placed in a supine position. After general laryngeal mask airway was administered, the patient was placed in a left lateral decubitus position. pressure points were well padded to include down leg peroneal pad as well as axillary roll. The patient was held firmly to the operating table using the vacuum pack suction system. Right upper extremity and shoulder were then prepped and draped in routine sterile fashion. The arm was held in the Arthrex traction boom at 30 degrees of forward flexion, 30 degrees of abduction, 10 pounds of traction laterally. Arthroscopy was established in the glenohumeral joint from the posterior portal. Anterior portal was established in the anterior safe interval. Diagnostic arthroscopy showed severe biceps tendinitis and rotator cuff tear as described above. In fact, the patient's excoriated subacromial region and the coracoacromial ligament were seen through the rotator cuff tear. Accessory lateral portal was created. This was all denuded. The coracoacromial ligament was taken down and a subacromial decompression was done through this viewing portal. The patient had previously had a distal clavicle excision, which was adequate and no further surgery at the area. The greater tuberosity was decorticated under arthroscopic visualization using the arthroscopic resector to create a good bleeding bed for reapproximation. At this point, an arthrotomy was performed. Incision was made over the lateral deltoid taken down to the level of the deep deltoid fascia, which was incised, and under direct visualization, the rotator cuff tear was then seen. The Scorpion suture passer was then used to create a [id number] repair of the rotator cuff using FiberTape. This was repaired to the level of the bony surface, and at the bony surface, a double row SpeedBridge was utilized to OPERATIVE REPORT [id number] LEOBARDO BAIRD reapproximate the rotator cuff back to its normal footprint. Having completed this, the arthrotomy was closed with #1 Vicryl, 2-0 Vicryl and 4-0 Prolene in routine running fashion as were the anterior and posterior arthroscopic portals done by ROB Juárez. The patient was then placed in a slingshot sling, awakened and taken to recovery in stable condition. All final needle and sponge counts were correct. TRANSINT:[id number] Voice Confirmation ID: [id number] DOCUMENT ID: [id number] MILA CURRIE, LA ADAMS at 0842 CC: [id number] DICTATION DATE: 07/13/19 1134 SWITCHBOARD TROUBLESHOOTER: 07/13/19 1738 [facility] 07/13/19 [facility] [address] [place] [address]
== END 2019-07-13 13:15 | disposition home or self-care (01) ==
LOC: D.OPS 08:30 → D.PAN 11:45 → D.OPS 13:15 → D.PAN 19:15 → D.OPS 19:45 → D.PAN 19:45
PROVIDERS: Anesthesiology; ATTEND Orthopaedic Surgery
DX: M75.121 Complete rotator cuff tear or rupture of right shoulder, not specified as traumatic (principal); M75.41 Impingement syndrome of right shoulder; M25.511 Pain in right shoulder

== ENCOUNTER → 2019-11-10 08:43 | Outpatient (CLI) | payer OTHER ==
[2019-07-13 09:07] VITALS: BMI 32.3
[~2019-11-10 08:43] MED LIST changes: +HYDROCODON-ACE1 EA10 PO
== END | disposition home or self-care (01) ==
LOC: D.CT 08:43
PROVIDERS: ATTEND Orthopaedic Surgery
DX: M54.12 Radiculopathy, cervical region (principal)